=== PATIENT | male | born 1985 | race Caucasian/White ===

== ENCOUNTER → 2021-07-01 12:31 | Outpatient (CLI) | payer OTHER, SELFPAY | PROVIDERS: Visit Provider Nurse Practitioner | DX: U07.1 COVID-19 (principal) | CPT/HCPCS: C9803; U0003; U0005 ==

== ENCOUNTER → 2021-08-01 15:51 | Outpatient (CLI) | payer OTHER, SELFPAY ==
[2021-08-01 16:17] VITALS: BMI 33.9
== END ==
LOC: INF 15:55
PROVIDERS: Visit Provider Nurse Practitioner Family
DX: L40.9 Psoriasis, unspecified (principal)

== ENCOUNTER → 2022-08-14 16:35 | Outpatient (CLI) | payer OTHER, SELFPAY ==
[2022-08-14 19:57] LABS: Basophils # 0.2 K/mm3 (0-0.2); Basophils % 1.3 % (0.1-2.0); Eosinophils # 0.2 K/mm3 (0.0-0.4); Eosinophils % 1.9 % (0.1-12.0); Hematocrit 47.9 % (42.0-52.0); Hemoglobin 16.3 g/dL (14.1-18.0); Lymphocytes # 4.9 K/mm3 (0.7-4.5); Lymphocytes % 41.1 % (10-50); Mean Corpuscular HGB Conc 34.1 g/dL (31.8-35.4); Mean Corpuscular Hemoglobin 30.3 pg (27.0-31.2); Mean Platelet Volume 9.1 fl (7.4-10.4); Monocytes # 0.5 K/mm3 (0.1-1.0); Monocytes % 4.2 % (1.7-9.3); Neutrophils # 6.2 K/mm3 (1.8-7.8); Neutrophils % 51.5 % (37.0-80.0); Platelet Count 263 K/mm3 (142-424); Red Blood Count 5.38 M/mm3 (4.60-6.20)
[2022-08-14 19:59] LABS: Alanine Aminotransferase 69 U/L (12-78); Albumin/Globulin Ratio 1.5 (1.1-1.8); Alkaline Phosphatase 97 U/L (38-126); Aspartate Amino Transferase 54 U/L (17-59); Blood Urea Nitrogen 13 mg/dl (9-20); Calcium 9.1 mg/dl (8.4-10.2); Carbon Dioxide 22 mmol/L (22.0-30.0); Chloride 101 mmol/L (98-107); Chol/HDL Ratio 9.1 (1-3.5); Cholesterol 281 mg/dl (140-200); Estimated Glomerular Filt Rate 95 ml/min (>60); GFR (African American) 115 ML/MIN (>60); Globulin 3.3 g/dL (1.3-3.2); Glucose 92 mg/dl (74-100); HDL Cholesterol 31 mg/dl (40-60); Sodium 135 mmol/L (136-145); Total Protein,Serum 8.3 g/dl (6.3-8.2)
[2022-08-14 20:10] LABS: Direct LDL Cholesterol 124.72 mg/dL (100-129)
[2022-08-14 20:12] LABS: Triglycerides 714 mg/dl (30-150)
[2022-08-23 05:25] LABS: Testosterone, Total, LC/MS 353 ng/dL (.)
== END ==
LOC: LAB.DROPOF 08-15 07:43
PROVIDERS: PCP Family Medicine; Visit Provider Family Medicine
DX: R53.83 Other fatigue (principal); I10 Essential (primary) hypertension
CPT/HCPCS: 80053; 80061; 84403; 85025

== ENCOUNTER → 2022-09-06 06:50 | Outpatient (CLI) | payer OTHER, SELFPAY ==
--- NOTE | 2022-09-06 07:21 | XR_ITS ---
FINAL REPORT CLINICAL HISTORY: chest pain FINDINGS: Two views of the chest were obtained. The heart size and pulmonary vascularity are within normal limits. The mediastinum is normal. No acute pulmonary abnormality is identified. There is no pneumothorax. The bony thorax is intact. IMPRESSION: No active cardiopulmonary disease. Reviewed, Interpreted and Dictated by Woodrow Bryd III, MD Transcribed by Marina Blackmon Authenticated and [facility]
== END ==
PROVIDERS: PCP Family Medicine; Visit Provider Family Medicine
DX: R07.9 Chest pain, unspecified (principal)
CPT/HCPCS: 71046; 78452; 93017; A9502